=== PATIENT | female | born 1960 | race Caucasian/White ===

== ENCOUNTER 2018-11-04 19:37 | Emergency (ER) | payer MEDICAID ==
[2018-11-04] MEDS ORDERED: Sodium Chloride 0.9% 1,000 ML IV STA (20:00)
[2018-11-04] MEDS ORDERED: Sodium Chloride 0.9% 1,000 ML IV ONE (20:00)
--- NOTE | 2018-11-04 20:09 | C.PDOC ---
History Of Present Illness 58 year old female presents to the ER with complaint of lower abdominal pain for the past month that has worsened tonight. Patient also reports having dysuria and frequent bowel movements but no diarrhea. Denies vaginal bleeding, vaginal discharge, nausea or vomiting. Time Seen by Provider: 11/04/18 19:52 Chief Complaint (Nursing): Abdominal Pain History Per: Patient History/Exam Limitations: no limitations Onset/Duration Of Symptoms: Days Current Symptoms Are (Timing): Still Present Location Of Pain/Discomfort: Other (Lower abdominal) Associated Symptoms: Urinary Symptoms (Dysuria), Other (Frequent bowel movements) Exacerbating Factors: None Alleviating Factors: None Recent travel outside of the [place]: No Abnormal Vaginal Bleeding: No Past Medical History Reviewed: Historical Data, Nursing Documentation, Vital Signs Vital Signs: Last Vital Signs Temp 98.5 F 11/04/18 19:53 Pulse 84 11/04/18 19:53 Resp 20 11/04/18 19:53 BP 159/99 H 11/04/18 19:53 Pulse Ox 96 11/04/18 19:53 Family History: States: Unknown Family Hx - Social History Hx Alcohol Use: No Hx Substance Use: No - Immunization History Hx Tetanus Toxoid Vaccination: No Hx Influenza Vaccination: No Hx Pneumococcal Vaccination: No Review Of Systems Except As Marked, All Systems Reviewed And Found Negative. Gastrointestinal: Positive for: Abdominal Pain. Negative for: Nausea, Vomiting, Diarrhea Physical Exam - Physical Exam Appears: Non-toxic Skin: Normal Color, Warm, Dry Head: Atraumatic, Normacephalic Eye(s): bilateral: Normal Inspection Oral Mucosa: Moist Chest: Symmetrical, No Tenderness Cardiovascular: Rhythm Regular Respiratory: Normal Breath Sounds, No Rales, No Rhonchi, No Wheezing Gastrointestinal/Abdominal: Soft, Tenderness (Bilateral lower), No Distention, No Guarding, No Rebound Back: No CVA Tenderness Neurological/Psych: Oriented x3, Normal Speech ED Course And Treatment - Laboratory Results Result Diagrams: 11/04/18 20:13 11/04/18 20:13 O2 Sat by Pulse Oximetry: 96 (Room air) Pulse Ox Interpretation: Normal Progress Note: CT abd/pel, blood work, and urinalysis ordered. Pepcid, toradol, zofran, and IV fluids administered. Disposition Counseled Patient/Family Regarding: Studies Performed, Diagnosis, Need For Followup, Rx Given - Disposition Referrals: Guillermo Rodriguez MD [Staff Provider] - Disposition: HOME/ ROUTINE Disposition Time: 23:13 Condition: STABLE Additional Instructions: follow up with your doctor within 2 days call to make an appointment take medications as prescribed return to ER if symptoms worsens or progress Prescriptions: Naproxen [Naprosyn] 500 mg PO BID PRN #16 tab PRN Reason: Pain, Moderate (4-7) Nitrofurantoin Macrocrystals [Macrobid] 100 mg PO BID #14 cap Phenazopyridine [Pyridium] 200 mg PO TID PRN #6 tab PRN Reason: Pain, Mild (1-3) Instructions: Acute Abdomen (Belly Pain), Adult (DC), Acute Cystitis (DC) Forms: Gen Discharge Inst Puerto Rican, [employer] (Puerto Rican) Print Language: CHADIAN - Clinical Impression Clinical Impression: Abdominal pain, UTI (urinary tract infection) - Scribe Statement The provider has reviewed the documentation as recorded by the Scribe Cb Mazariegos All medical record entries made by the Scribe were at my direction and personally dictated by me. I have reviewed the chart and agree that the record accurately reflects my personal performance of the history, physical exam, medical decision making, and the department course for this patient. I have also personally directed, reviewed, and agree with the discharge instructions and disposition.
[2018-11-04 20:16] LABS: BASO # 0.1 K/uL (0.0-0.2); BASO % 1.6 % (0.0-2.0); EOS # 0.3 K/uL (0.0-0.7); EOS % 4.5 % (0.0-4.0); HEMOGLOBIN 12.7 g/dL (11.0-16.0); LYMPH % 34.6 % (20.0-40.0); MEAN CELL VOLUME 85.9 fL (81.0-99.0); MEAN CORPUSCULAR HEMOGLOBIN 28.1 pg (27.0-31.0); MEAN CORPUSCULAR HGB CONC 32.7 g/dL (33.0-37.0); MEAN PLATELET VOLUME 9.1 fL (7.2-11.7); MONO # 0.6 K/uL (0.0-0.8); MONO % 10.3 % (0.0-10.0); NEUT # 2.8 K/uL (1.8-7.0); RBC 4.52 Mil/uL (3.80-5.20); RED CELL DISTRIBUTION WIDTH 14.9 % (11.5-14.5); WHITE BLOOD COUNT 5.7 K/uL (4.8-10.8)
[2018-11-04 20:19] LABS: SQUAMOUS EPITHIAL 13 /hpf (0-5); URINE BACTERIA OCC (<OCC); URINE BILIRUBIN NEGATIVE (NEGATIVE); URINE BLOOD NEGATIVE (NEGATIVE); URINE CLARITY Hazy (Clear); URINE COLOR Yellow (YELLOW); URINE GLUCOSE (UA) NORMAL (Normal); URINE LEUKOCYTE ESTERASE 3+ Leu/uL (Negative); URINE PROTEIN NEGATIVE (NEGATIVE); URINE UROBILINOGEN NORMAL mg/dL (0.2-1.0)
[2018-11-04 20:28] LABS: ALB/GLOB RATIO 1.5 (1.0-2.1); ALBUMIN 4.3 g/dL (3.5-5.0); BLOOD UREA NITROGEN 28 mg/dL (7-17); CALCIUM 8.4 mg/dl (8.6-10.4); GFR NON-AFRICAN AMERICAN 57; LIPASE 235 U/L (23-300)
[2018-11-04 20:32] LABS: ALT/SGPT 36 U/L (9-52); AST/SGOT 46 U/L (14-36)
[2018-11-04] MEDS ORDERED: Iodixanol 320 MG/ML 100 ML BOTTLE IV ONE (20:44)
[2018-11-04 23:47] VITALS: BP 130/80; PULSE 80; RESP 14; TEMP 98.2; O2SAT 98
--- NOTE | 2018-11-05 09:40 | CT ---
CT abdomen and pelvis HISTORY: Abdominal pain. COMPARISON: None available. TECHNIQUE: Multiple contiguous axial images were performed through the abdomen and pelvis with the use of intravenous contrast. Subsequently, sagittal coronal reformatted images were obtained. This CT exam was performed using one or more of the following dose reduction techniques: Automated exposure control, adjustment of the mA and/or kV according to patient size, and/or use of iterative reconstruction technique. Findings: MILD ATELECTASIS AT THE RIGHT LUNG BASE. NO PLEURAL OR PERICARDIAL EFFUSION. LIVER IS PRESERVED. GALLBLADDER IS PRESERVED. DIMINUTIVE SPLEEN. ADRENAL GLANDS ARE PRESERVED. PANCREAS IS PRESERVED. UPPER ABDOMINAL BOWEL IS PRESERVED. RIGHT KIDNEY: NO CALCULI OR HYDRONEPHROSIS. LEFT KIDNEY: NO CALCULI OR HYDRONEPHROSIS. URINARY BLADDER IS PRESERVED. HETEROGENEOUS UTERUS AND BILATERAL ADNEXA. FECAL RETENTION IN THE RIGHT HEMICOLON. APPENDIX IS WITHIN NORMAL LIMITS. FEW SHOTTY PARA-AORTIC AND INGUINAL LYMPH NODES. FOR EXAMPLE A RIGHT INGUINAL LYMPH NODE MEASURES UP TO 1.6 CENTIMETERS. DEGENERATIVE CHANGES IN THE SPINE. IMPRESSION: NEGATIVE ACUTE. FEW SHOTTY PARA-AORTIC AND INGUINAL LYMPH NODES. FOR EXAMPLE, A RIGHT INGUINAL LYMPH NODE MEASURES UP TO 1.6 CENTIMETERS. ADDITIONAL FINDINGS ABOVE. A preliminary report was generated at 10:30 p.m. on 11/04/[address] Thad Patel from [employer].
== END 2018-11-04 23:47 | disposition home or self-care (01) ==
LOC: C.ER 19:37
DX: N39.0 Urinary tract infection, site not specified (principal); R10.30 Lower abdominal pain, unspecified
CPT/HCPCS: 74177; 80053; 81001; 83690; 85025; 87086; 96361; 96374; 96375; 99284; J1885; J2405; J7030; Q9967